=== PATIENT | male | born 1970 | race African-American/Black ===

== ENCOUNTER 2018-07-20 11:38 | Emergency (ER) | payer OTHER, MEDICAID ==
[~2018-07-20] VITALS: Ht 177.8 cm; Wt 89.0 kg
[2018-07-20 12:22] VITALS: BP 134/79
== END 2018-07-20 13:34 | disposition home or self-care (01) ==
LOC: ER 11:38
DX: Z00.00 Encounter for general adult medical examination without abnormal findings (principal); J45.909 Unspecified asthma, uncomplicated; F17.200 Nicotine dependence, unspecified, uncomplicated; F14.10 Cocaine abuse, uncomplicated; F12.10 Cannabis abuse, uncomplicated
CPT/HCPCS: 72170; 99284